=== PATIENT | male | born 1965 | race African-American/Black ===

== ENCOUNTER 2023-10-24 18:47 | Inpatient (IN) | payer OTHER ==
[2023-10-24 19:27] VITALS: BMI 31.8
[2023-10-24] MEDS ORDERED: ALBUTEROL SO4 0.083% IH SOL 2.5 MG/3 ML VIAL.NEB. NEB PRN (20:30)
[2023-10-24] MEDS ORDERED: MAG HYDROX/AL HYDROX/SIMETH 30 ML UNIT-DOSE CUP PO PRN (20:37)
[2023-10-24] MEDS ORDERED: LOPERAMIDE HCL 2 MG CAPSULE PO PRN (20:37)
[2023-10-24] MEDS ORDERED: guaiFENesin 600 MG TABLET.ER (FP) PO PRN (20:37)
[2023-10-24] MEDS ORDERED: BISMUTH SUBSALICYLATE 524 MG/30 ML PO PRN (20:37)
[2023-10-24] MEDS ORDERED: DICYCLOMINE HCL 10 MG CAPSULE PO PRN (20:37)
[2023-10-24] MEDS ORDERED: ACETAMINOPHEN 325 MG TABLET (FP) PO PRN (20:37)
[2023-10-24] MEDS ORDERED: BENZONATATE 200 MG CAPSULE PO PRN (20:37)
[2023-10-24] MEDS ORDERED: IBUPROFEN 600 MG TABLET (FP) PO PRN (20:37)
[2023-10-24] MEDS ORDERED: ONDANSETRON *ODT* 4 MG TABLET SL PRN (20:37)
[2023-10-24] MEDS ORDERED: P-EPHED 60MG/TRIPROLIDI 2.5MG TABLET PO PRN (20:37)
[2023-10-24] MEDS ORDERED: BENZOCAINE/MENTHOL (CHLORASEPTIC ) LOZENGE MM PRN (20:37)
[2023-10-24] MEDS ORDERED: IBUPROFEN 400 MG TABLET (FP) PO PRN (20:37)
[2023-10-24] MEDS ORDERED: QUEtiapine FUMARATE 400 MG TABLET PO ONE (22:00)
[2023-10-24] MEDS: MELATONIN 5 MG TABLETS PO SCH (22:51)
[2023-10-24] MEDS: THIAMINE HCL 100 MG TABLET (FP) PO SCH (22:52)
[2023-10-24] MEDS: ATORVASTATIN CA 10 MG TABLET (FP) PO SCH (22:52)
[2023-10-24] MEDS: LIDOCAINE PATCH REMOVAL MC SCH (22:53)
[2023-10-25] MEDS: LIDOCAINE 5% TOPICAL PATCH TP SCH (10:28)
[2023-10-25] MEDS: hydrOXYzine PAMOATE 25 MG CAPSULE (FP) PO PRN (10:29)
[2023-10-25] MEDS: METHOCARBAMOL 500 MG TABLET PO PRN (10:29)
[2023-10-25] MEDS: PRENATAL VITAMINS W/ FOLIC ACID TABLET (FP) PO SCH (10:29)
[2023-10-25] MEDS: amLODIPine BESYLATE 10 MG TABLET (FP) PO SCH (10:29)
[2023-10-25] MEDS: diazePAM 5 MG TABLET PO SCH (10:53)
[2023-10-25 10:54] LABS: HEMATOCRIT 43.5 % (35.4-49); HEMOGLOBIN 14.3 GM/dL (11.7-16.9); MCH 30.8 pg (25.7-33.7); MCHC 32.8 g/dl (32.0-35.9); MEAN CELL VOLUME 93.8 fl (80-96); MEAN PLT VOLUME 9.3 fl (7.5-11.1); PLATELET COUNT 225 10^3/uL (134-434); RBC 4.64 M/mm3 (4.00-5.60); RDW 12.6 % (11.9-15.9)
[2023-10-25 10:59] LABS: CHLORIDE 107 mmol/L (98-107); POTASSIUM 4.3 mmol/L (3.5-5.1); SODIUM 138 mmol/L (136-145)
[2023-10-25] MEDS: FLU VACCINE (FLULAVAL) PF 60 MCG/0.5 ML SYRINGE 2023-2024 IM ONE (11:07)
[2023-10-25 11:20] LABS: BLOOD UREA NITROGEN 14.5 mg/dL (7-18); GLUCOSE,RANDOM 107 mg/dL (74-106)
[2023-10-25 11:21] LABS: ALBUMIN 3.6 g/dl (3.4-5.0); ANION GAP 8 mmol/L (4-13); CALCIUM 8.7 mg/dL (8.5-10.1); CO2 24 mmol/L (21-32)
[2023-10-25 11:23] LABS: SGPT/ALT 37 U/L (13-61)
[2023-10-25 11:24] LABS: CREATININE 1.1 mg/dL (0.55-1.3); SGOT/AST 42 U/L (15-37)
[2023-10-25 11:25] LABS: BILIRUBIN,TOTAL 0.4 mg/dL (0.2-1); TOT PROT 7.1 g/dl (6.4-8.2)
[2023-10-25 11:26] LABS: ALK PHOS 73 U/L (45-117)
[2023-10-25] MEDS ORDERED: QUEtiapine FUMARATE 200 MG TABLET PO ONE (12:29)
[2023-10-25] MEDS: QUEtiapine FUMARATE 200 MG TABLET PO ONE (12:53)
[2023-10-25] MEDS: ALBUTEROL SO4 HFA INHALER IH PRN (16:24)
[2023-10-25] MEDS: QUEtiapine FUMARATE 400 MG TABLET PO SCH (22:10)
[2023-10-27] MEDS: diazePAM 5 MG TABLET PO SCH (05:18)
[2023-10-27] MEDS: diazePAM 5 MG TABLET PO PRN (10:13)
[2023-10-27] MEDS: MAGNESIUM HYDROX 2400MG/30ML ORAL SUSPENSION 30 ML CUP PO PRN (22:33)
[2023-10-28] MEDS: diazePAM 5 MG TABLET PO SCH (05:57)
[2023-10-28] MEDS: POLYETHYLENE GLYCOL (HEALTHYLAX) 3350 17 GM PACKET PO PRN (21:35)
[2023-10-29] MEDS: diazePAM 5 MG TABLET PO ONE (05:37)
[2023-10-29 09:40] VITALS: BP 141/81; PULSE 90; RESP 20; TEMP 97.7
== END 2023-10-29 09:21 | disposition home or self-care (01) | DRG 775 ==
LOC: YASAS 18:47 → Y3N 21:59
PROVIDERS: ADMIT Allergy & Immunology; ATTEND Allergy & Immunology
PROC: HZ2ZZZZ Detoxification Services for Substance Abuse Treatment (ICD-10-PCS; principal; 2023-10-24)
DX: F10.230 Alcohol dependence with withdrawal, uncomplicated (principal); F25.0 Schizoaffective disorder, bipolar type; F43.10 Post-traumatic stress disorder, unspecified; I10 Essential (primary) hypertension; J44.9 Chronic obstructive pulmonary disease, unspecified; Z86.11 Personal history of tuberculosis; Z87.891 Personal history of nicotine dependence; Z91.51 Personal history of suicidal behavior
CPT/HCPCS: 36415; 80053; 80307; 85027; 86780; 87635; 90686; 93005; 93010; G0008

== ENCOUNTER 2023-11-11 17:12 | Inpatient (IN) | payer OTHER ==
[2023-11-11 20:01] VITALS: BMI 32.5
[2023-11-11] MEDS ORDERED: BENZOCAINE/MENTHOL (CHLORASEPTIC ) LOZENGE MM PRN (21:12)
[2023-11-11] MEDS ORDERED: guaiFENesin 600 MG TABLET.ER (FP) PO PRN (21:12)
[2023-11-11] MEDS ORDERED: ACETAMINOPHEN 325 MG TABLET (FP) PO PRN (21:12)
[2023-11-11] MEDS ORDERED: NALOXONE HCL 0.4 MG/ML VIAL IM PRN (21:12)
[2023-11-11] MEDS ORDERED: BENZONATATE 200 MG CAPSULE PO PRN (21:12)
[2023-11-11] MEDS ORDERED: hydrOXYzine PAMOATE 25 MG CAPSULE (FP) PO PRN (21:12)
[2023-11-11] MEDS ORDERED: IBUPROFEN 400 MG TABLET (FP) PO PRN (21:12)
[2023-11-11] MEDS ORDERED: NALOXONE HCL (KLOXXADO) 8 MG SPRAY NS PRN (21:12)
[2023-11-11] MEDS ORDERED: LOPERAMIDE HCL 2 MG CAPSULE PO PRN (21:12)
[2023-11-12] MEDS: MELATONIN 5 MG TABLETS PO SCH (03:17)
[2023-11-12] MEDS: THIAMINE HCL 100 MG TABLET (FP) PO SCH (03:17)
[2023-11-12] MEDS: ALBUTEROL SO4 HFA INHALER IH SCH (03:18)
[2023-11-12] MEDS: PRENATAL VITAMINS W/ FOLIC ACID TABLET (FP) PO SCH (09:52)
[2023-11-12] MEDS: amLODIPine BESYLATE 10 MG TABLET (FP) PO SCH (09:52)
[2023-11-12] MEDS: QUEtiapine FUMARATE 400 MG TABLET PO SCH (10:58)
[2023-11-12 11:54] LABS: HEMATOCRIT 40.8 % (35.4-49); HEMOGLOBIN 13.9 GM/dL (11.7-16.9); MCH 31.6 pg (25.7-33.7); MCHC 34.1 g/dl (32.0-35.9); MEAN CELL VOLUME 92.6 fl (80-96); MEAN PLT VOLUME 9.8 fl (7.5-11.1); PLATELET COUNT 228 10^3/uL (134-434); RDW 12.3 % (11.9-15.9); WHITE BLOOD COUNT 7.5 K/mm3 (4.0-10.0)
[2023-11-12 12:18] LABS: CHLORIDE 106 mmol/L (98-107); SODIUM 139 mmol/L (136-145)
[2023-11-12 12:21] LABS: ANION GAP 8 mmol/L (4-13); CALCIUM 9.5 mg/dL (8.5-10.1); CO2 25 mmol/L (21-32); GLUCOSE,RANDOM 163 mg/dL (74-106)
[2023-11-12 12:25] LABS: ALBUMIN 3.5 g/dl (3.4-5.0); BILIRUBIN,TOTAL 0.5 mg/dL (0.2-1); BLOOD UREA NITROGEN 15.6 mg/dL (7-18)
[2023-11-12 12:27] LABS: TOT PROT 7.3 g/dl (6.4-8.2)
[2023-11-12 12:28] LABS: CREATININE 1.3 mg/dL (0.55-1.3); SGOT/AST 32 U/L (15-37); SGPT/ALT 33 U/L (13-61)
[2023-11-12 12:31] LABS: ALK PHOS 71 U/L (45-117)
[2023-11-12] MEDS: MAGNESIUM HYDROX 2400MG/30ML ORAL SUSPENSION 30 ML CUP PO PRN (17:49)
[2023-11-12] MEDS: ALBUTEROL SO4 HFA INHALER IH PRN (17:50)
[2023-11-12 18:28] LABS: URINE APPEARANCE CLEAR; URINE BILIRUBIN NEGATIVE (NEGATIVE); URINE COLOR YELLOW; URINE GLUCOSE (UA) NEGATIVE (NEGATIVE); URINE KETONE NEGATIVE (NEGATIVE); URINE LEUK ESTERASE NEGATIVE (NEGATIVE); URINE NITRITE NEGATIVE (NEGATIVE); URINE PROTEIN NEGATIVE (NEGATIVE); URINE UROBILINOGEN 0.2 mg/dL (0.2-1.0)
[2023-11-12] MEDS: MAG HYDROX/AL HYDROX/SIMETH 30 ML UNIT-DOSE CUP PO PRN (21:42)
[2023-11-12] MEDS: ATORVASTATIN CA 10 MG TABLET (FP) PO SCH (21:43)
[2023-11-14] MEDS: POLYETHYLENE GLYCOL (HEALTHYLAX) 3350 17 GM PACKET PO PRN (08:44)
[2023-11-15] MEDS: IBUPROFEN 600 MG TABLET (FP) PO PRN (06:22)
[2023-11-15 09:07] VITALS: RESP 16
[2023-11-15] MEDS: BISACODYL 5 MG TABLET.DR (FP) PO PRN (11:41)
[2023-11-16 06:45] VITALS: TEMP 97.4
[2023-11-16 09:28] VITALS: BP 131/86; PULSE 91
== END 2023-11-16 18:50 | disposition left against medical advice (07) | DRG 770 ==
LOC: YASAS 17:12 → Y3E 11-12 02:42
PROVIDERS: ADMIT Allergy & Immunology; ATTEND Psychiatry & Neurology Pain Medicine
PROC: HZ42ZZZ Group Counseling for Substance Abuse Treatment, Cognitive-Behavioral (ICD-10-PCS; principal; 2023-11-12)
DX: F10.20 Alcohol dependence, uncomplicated (principal); F31.9 Bipolar disorder, unspecified; F41.9 Anxiety disorder, unspecified; F43.10 Post-traumatic stress disorder, unspecified; E78.5 Hyperlipidemia, unspecified; G47.30 Sleep apnea, unspecified; I10 Essential (primary) hypertension; J44.9 Chronic obstructive pulmonary disease, unspecified; Z86.79 Personal history of other diseases of the circulatory system; Z86.11 Personal history of tuberculosis; Z88.8 Allergy status to other drugs, medicaments and biological substances
CPT/HCPCS: 36415; 71046-TC-FY; 80053; 80307; 81003; 83036; 85027; 86780; 87635

== ENCOUNTER 2025-02-04 15:53 | Inpatient (IN) | payer OTHER ==
[2025-02-04 16:35] VITALS: BMI 28.7
[2025-02-04] MEDS ORDERED: LOPERAMIDE HCL 2 MG CAPSULE PO PRN (17:04)
[2025-02-04] MEDS ORDERED: ONDANSETRON *ODT* 4 MG TABLET SL PRN (17:04)
[2025-02-04] MEDS ORDERED: BENZONATATE 200 MG CAPSULE PO PRN (17:04)
[2025-02-04] MEDS ORDERED: MAG HYDROX/AL HYDROX/SIMETH 30 ML UNIT-DOSE CUP PO PRN (17:04)
[2025-02-04] MEDS ORDERED: POLYETHYLENE GLYCOL (HEALTHYLAX) 3350 17 GM PACKET PO PRN (17:04)
[2025-02-04] MEDS ORDERED: guaiFENesin 600 MG TABLET.ER (FP) PO PRN (17:04)
[2025-02-04] MEDS ORDERED: DICYCLOMINE HCL 10 MG CAPSULE PO PRN (17:04)
[2025-02-04] MEDS ORDERED: MAGNESIUM HYDROX 2400MG/30ML ORAL SUSPENSION 30 ML CUP PO PRN (17:04)
[2025-02-04] MEDS ORDERED: BENZOCAINE/MENTHOL (CHLORASEPTIC ) LOZENGE MM PRN (17:04)
[2025-02-04] MEDS ORDERED: BISMUTH SUBSALICYLATE 524 MG/30 ML PO PRN (17:04)
[2025-02-04] MEDS ORDERED: NALOXONE (NARCAN) HCL 4 MG/0.1 ML SPRAY NS PRN (17:04)
[2025-02-04] MEDS ORDERED: IBUPROFEN 600 MG TABLET (FP) PO PRN (17:04)
[2025-02-04] MEDS ORDERED: IBUPROFEN 400 MG TABLET (FP) PO ONE (18:24)
[2025-02-04] MEDS ORDERED: chlordiazePOXIDE HCL 25 MG CAPSULE ONE (18:24)
[2025-02-04] MEDS: chlordiazePOXIDE HCL 25 MG CAPSULE PO SCH (18:27)
[2025-02-04] MEDS: IBUPROFEN 400 MG TABLET (FP) PO PRN (18:28)
[2025-02-04] MEDS ORDERED: ALBUTEROL SO4 HFA INHALER IH PRN (19:01)
[2025-02-04] MEDS: THIAMINE 100 MG TABLET PO SCH (22:13)
[2025-02-04] MEDS: MELATONIN 5 MG TABLETS PO SCH (22:13)
[2025-02-04] MEDS: ATORVASTATIN CA 10 MG TABLET (FP) PO SCH (22:13)
[2025-02-04] MEDS: ACETAMINOPHEN 325 MG TABLET (FP) PO PRN (22:14)
[2025-02-04] MEDS: METHOCARBAMOL 500 MG TABLET PO PRN (22:15)
[2025-02-05] MEDS: chlordiazePOXIDE HCL 25 MG CAPSULE PO PRN (08:34)
[2025-02-05 09:59] LABS: HEMATOCRIT 40.5 % (40.1-51.0); HEMOGLOBIN 13.5 g/dL (13.7-17.5); MCHC 33.3 g/dl (32.3-36.5); MEAN CELL VOLUME 95.1 fl (79.0-92.2); MEAN PLT VOLUME 10.8 fl (9.4-12.4); PLATELET COUNT 193 x10^3/uL (163-337); RDW 12.5 % (12.2-16.1)
[2025-02-05] MEDS: PRENATAL VITAMINS W/ FOLIC ACID TABLET (FP) PO SCH (10:11)
[2025-02-05] MEDS: amLODIPine BESYLATE 10 MG TABLET (FP) PO SCH (10:11)
[2025-02-05 10:51] LABS: CHLORIDE 105 mmol/L (98-107); POTASSIUM 3.9 mmol/L (3.5-5.1); SODIUM 140 mmol/L (136-145)
[2025-02-05 11:31] LABS: ANION GAP 9 mmol/L (4-13); CO2 26 mmol/L (21-32)
[2025-02-05 11:33] LABS: ALBUMIN 3.5 g/dl (3.4-5.0); CALCIUM 9.4 mg/dL (8.5-10.1); GLUCOSE,RANDOM 110 mg/dL (74-106)
[2025-02-05 11:36] LABS: ALK PHOS 75 U/L (45-117); BILIRUBIN,TOTAL 0.7 mg/dL (0.2-1); CREATININE 1.1 mg/dL (0.55-1.3); SGOT/AST 98 U/L (15-37)
[2025-02-05 11:37] LABS: TOT PROT 6.7 g/dl (6.4-8.2)
[2025-02-05 11:45] LABS: SGPT/ALT 71 U/L (13-61)
[2025-02-05] MEDS: QUEtiapine FUMARATE 200 MG TABLET PO SCH (13:32)
[2025-02-05] MEDS: QUEtiapine FUMARATE 400 MG TABLET PO SCH (22:11)
[2025-02-06] MEDS: chlordiazePOXIDE HCL 25 MG CAPSULE PO SCH (06:40)
[2025-02-06] MEDS: diphenhydrAMINE HCL 25 MG CAPSULE (FP) PO ONE (19:23)
[2025-02-07] MEDS ORDERED: chlordiazePOXIDE HCL 10 MG CAPSULE PO PRN
[2025-02-07] MEDS: chlordiazePOXIDE HCL 10 MG CAPSULE PO SCH (05:34)
[2025-02-08] MEDS: chlordiazePOXIDE HCL 10 MG CAPSULE PO SCH (05:41)
[2025-02-08] MEDS: NALTREXONE HCL 50 MG TABLET PO SCH (10:14)
[2025-02-09] MEDS: chlordiazePOXIDE HCL 10 MG CAPSULE PO ONE (05:44)
[2025-02-09 09:00] VITALS: BP 138/99; PULSE 95; RESP 18; TEMP 97.4
== END 2025-02-09 09:50 | disposition home or self-care (01) | DRG 775 ==
LOC: YASAS 15:53 → Y3N 17:56
PROVIDERS: ADMIT Allergy & Immunology; ATTEND Allergy & Immunology
PROC: HZ2ZZZZ Detoxification Services for Substance Abuse Treatment (ICD-10-PCS; principal; 2025-02-04)
DX: F10.230 Alcohol dependence with withdrawal, uncomplicated (principal); F25.0 Schizoaffective disorder, bipolar type; F31.9 Bipolar disorder, unspecified; F41.9 Anxiety disorder, unspecified; E78.49 Other hyperlipidemia; I10 Essential (primary) hypertension; J45.30 Mild persistent asthma, uncomplicated; R74.01 Elevation of levels of liver transaminase levels
CPT/HCPCS: 36415; 71045-TC-FY; 80053; 80305; 80307; 85027; 86780; 93005; 93010